=== PATIENT | female | born 1965 | race African-American/Black ===

== ENCOUNTER 2017-01-25 02:54 | Emergency (ER) | payer MEDICARE, OTHER | END 2017-01-25 03:27 | disposition home or self-care (01) | LOC: ER 02:54 | DX: M25.552 Pain in left hip (principal); R51 Headache; G89.29 Other chronic pain; F17.200 Nicotine dependence, unspecified, uncomplicated; T74.21XA Adult sexual abuse, confirmed, initial encounter | CPT/HCPCS: 99285 ==